=== PATIENT | female | born 1985 | race Hispanic/Latino ===

== ENCOUNTER 2017-04-30 14:39 | Inpatient (IN) | payer OTHER ==
[~2017-04-30] VITALS: Ht 165.1 cm; Wt 50.3 kg
[2017-04-30] MEDS: CLINDAMYCIN 600 MG/D5% WATER 50 ML IV SCH ×2 (04:45→20:49)
[2017-04-30 15:19] LABS: BASOPHILS % (AUTO) 0.2 % (0.0-5.0); EOSINOPHILS % (AUTO) 0.6 % (0.0-8.0); HEMATOCRIT 34.8 % (36-48); LYMPHOCYTES % (AUTO) 18.5 % (21.0-51.0); MEAN CORPUSCULAR HEMOGLOBIN 31.5 pg (27.0-33.0); MEAN CORPUSCULAR HGB CONC 35.3 g/dL (32.0-36.0); MEAN CORPUSCULAR VOLUME 89.2 fL (79-99); MONOCYTES % (AUTO) 6.7 % (3.0-13.0); PLATELET COUNT (AUTO) 186 K/uL (130-400); RED CELL DISTRIBUTION WIDTH 13.3 % (11.0-15.5); WHITE BLOOD COUNT (AUTO) 5.9 K/uL (4.8-10.8)
[2017-04-30 15:29] LABS: CREATININE 0.5 mg/dL (0.5-1.5); POTASSIUM 3.9 mmol/L (3.5-5.1)
[2017-04-30] MEDS ORDERED: OXYTOCIN-LR 20 UNITS/1000 ML 1,000 ML IV SCH (19:00)
[2017-04-30] MEDS: LACTATED RINGERS 1000ML 1,000 ML IV PRN (20:26)
[2017-04-30] MEDS ORDERED: CLINDAMYCIN 600 MG/D5% WATER 50 ML IV SCH (22:00)
[2017-05-01] MEDS: CLINDAMYCIN 600 MG/D5% WATER 50 ML IV SCH ×3 (04:47→20:43)
[2017-05-01 13:35] VITALS: BP 91/50
[2017-05-01] MEDS: LACTATED RINGERS 1000ML 1,000 ML IV PRN ×2 (15:46→22:55)
[2017-05-01 16:09] VITALS: BP 91/54
[2017-05-01] MEDS ORDERED: FLU VACC QS2017-18 36MOS UP/PF 60 MCG/0.5 ML ML IM SCH (16:15)
[2017-05-01 20:10] VITALS: BP 94/56
[2017-05-01 23:20] VITALS: BP 89/58
[2017-05-02 03:20] VITALS: BP 84/48
[2017-05-02] MEDS: LACTATED RINGERS 1000ML 1,000 ML IV PRN ×3 (05:03→19:31)
[2017-05-02] MEDS: CLINDAMYCIN 600 MG/D5% WATER 50 ML IV SCH ×3 (05:03→21:28)
[2017-05-02 07:26] VITALS: BP 86/46
[2017-05-02 11:56] VITALS: BP 96/58
[2017-05-02 12:09] LABS: HEPATITIS Bs ANTIGEN SCREEN P Negative (Negative)
[2017-05-02] MEDS ORDERED: ACETAMINOPHEN 325 MG TAB PO PRN (13:30)
[2017-05-02 15:39] VITALS: BP 89/45
[2017-05-02 19:15] VITALS: BP 97/50
[2017-05-02 23:54] VITALS: BP 88/50
[2017-05-03 04:33] VITALS: BP 89/47
[2017-05-03] MEDS: CLINDAMYCIN 600 MG/D5% WATER 50 ML IV SCH ×3 (06:06→21:32)
[2017-05-03] MEDS: LACTATED RINGERS 1000ML 1,000 ML IV PRN ×3 (06:07→19:53)
[2017-05-03 07:45] VITALS: BP 90/47
[2017-05-03 08:06] LABS: BASOPHILS % (AUTO) 0.6 % (0.0-5.0); EOSINOPHILS % (AUTO) 2.1 % (0.0-8.0); HEMATOCRIT 29.9 % (36-48); LYMPHOCYTES % (AUTO) 20.3 % (21.0-51.0); MEAN CORPUSCULAR HEMOGLOBIN 32.3 pg (27.0-33.0); MEAN CORPUSCULAR VOLUME 89.7 fL (79-99); MONOCYTES % (AUTO) 8.9 % (3.0-13.0); NEUTROPHILS % (AUTO) 68.1 % (40.0-77.0); PLATELET COUNT (AUTO) 138 K/uL (130-400); RED BLOOD CELL COUNT(AUTO) 3.33 MIL/uL (4.00-5.50); RED CELL DISTRIBUTION WIDTH 13.3 % (11.0-15.5)
[2017-05-03 12:48] VITALS: BP 94/51
[2017-05-03 15:28] VITALS: BP 94/53
[2017-05-03 19:55] VITALS: BP 96/49
[2017-05-03 23:15] VITALS: BP 91/54
[2017-05-04] MEDS: LACTATED RINGERS 1000ML 1,000 ML IV PRN ×2 (02:56→10:49)
[2017-05-04 03:25] VITALS: BP 86/54
[2017-05-04] MEDS: CLINDAMYCIN 600 MG/D5% WATER 50 ML IV SCH (05:35)
[2017-05-04 05:39] LABS: MEAN CORPUSCULAR HEMOGLOBIN 31.8 pg (27.0-33.0); MEAN CORPUSCULAR HGB CONC 35.5 g/dL (32.0-36.0); MEAN CORPUSCULAR VOLUME 89.5 fL (79-99); PLATELET COUNT (AUTO) 161 K/uL (130-400); RED BLOOD CELL COUNT(AUTO) 3.46 MIL/uL (4.00-5.50); RED CELL DISTRIBUTION WIDTH 13.6 % (11.0-15.5); WHITE BLOOD COUNT (AUTO) 4.5 K/uL (4.8-10.8)
[2017-05-04 08:09] VITALS: BP 93/55
[2017-05-04 11:58] VITALS: BP 110/59
== END 2017-05-04 14:40 | disposition home or self-care (01) | DRG 781 ==
LOC: EDH 14:39 → LDH 14:40 → OBSVTOIN 14:40 → LDH 18:45 → WSH 05-01 10:51
PROVIDERS: ADMIT Obstetrics & Gynecology; ATTEND Obstetrics & Gynecology
PROC: 3E0234Z Introduction of Serum, Toxoid and Vaccine into Muscle, Percutaneous Approach (ICD-10-PCS; principal; 2017-04-30)
DX: O99.89 Other specified diseases and conditions complicating pregnancy, childbirth and the puerperium (principal); N89.8 Other specified noninflammatory disorders of vagina; O42.90 Premature rupture of membranes, unspecified as to length of time between rupture and onset of labor, unspecified weeks of gestation; Z23 Encounter for immunization; Z3A.18 18 weeks gestation of pregnancy; Z88.8 Allergy status to other drugs, medicaments and biological substances
CPT/HCPCS: 36415; 76805; 76815; 80048; 85025; 85027; 86592; 86850; 86900; 86901; 87340; J3490; J7120; Q2038

== ENCOUNTER 2017-05-21 13:03 | Observation (INO) | payer OTHER ==
[~2017-05-21] VITALS: Ht 162.6 cm; Wt 50.8 kg
[2017-05-21 13:36] LABS: BASOPHILS % (AUTO) 0.3 % (0.0-5.0); EOSINOPHILS % (AUTO) 0.7 % (0.0-8.0); HEMATOCRIT 35.2 % (36-48); LYMPHOCYTES % (AUTO) 21.2 % (21.0-51.0); MEAN CORPUSCULAR HEMOGLOBIN 33.1 pg (27.0-33.0); MEAN CORPUSCULAR HGB CONC 36.4 g/dL (32.0-36.0); MEAN CORPUSCULAR VOLUME 91.1 fL (79-99); MONOCYTES % (AUTO) 6.1 % (3.0-13.0); NEUTROPHILS % (AUTO) 71.7 % (40.0-77.0); PLATELET COUNT (AUTO) 216 K/uL (130-400); RED BLOOD CELL COUNT(AUTO) 3.86 MIL/uL (4.00-5.50); RED CELL DISTRIBUTION WIDTH 13.9 % (11.0-15.5); WHITE BLOOD COUNT (AUTO) 7.2 K/uL (4.8-10.8)
[2017-05-21 14:30] VITALS: BP 112/66
== END 2017-05-21 14:42 | disposition home or self-care (01) ==
LOC: LDH 13:03
PROVIDERS: ADMIT Obstetrics & Gynecology; ATTEND Obstetrics & Gynecology
DX: O26.852 Spotting complicating pregnancy, second trimester (principal); Z3A.19 19 weeks gestation of pregnancy
CPT/HCPCS: 36415; 76805; 85025; G0378 ×2

== ENCOUNTER 2017-07-11 08:27 | Inpatient (IN) | payer OTHER ==
[2017-07-10] MEDS: IBUPROFEN 800 MG TAB PO SCH (19:45)
[~2017-07-11] VITALS: Ht 165.1 cm; Wt 54.4 kg
[2017-07-11] MEDS ORDERED: LACTATED RINGERS 1000ML 1,000 ML IV PRN (09:10)
[2017-07-11] MEDS ORDERED: OXYTOCIN-LR 20 UNITS/1000 ML 1,000 ML IV SCH (09:15)
[2017-07-11] MEDS ORDERED: MEPERIDINE-PF 50 MG/ML SYG IVP ONE (09:15)
[2017-07-11] MEDS ORDERED: DEXAMETHASONE SOD PHOSPHATE 4 MG/ML 1ML VIAL ONE (09:18)
[2017-07-11 09:19] LABS: HEMATOCRIT 36.8 % (36-48); MEAN CORPUSCULAR HEMOGLOBIN 32.1 pg (27.0-33.0); MEAN CORPUSCULAR HGB CONC 34.8 g/dL (32.0-36.0); MEAN CORPUSCULAR VOLUME 92.2 fL (79-99); PLATELET COUNT (AUTO) 192 K/uL (130-400); RED BLOOD CELL COUNT(AUTO) 3.99 MIL/uL (4.00-5.50); RED CELL DISTRIBUTION WIDTH 13.5 % (11.0-15.5); WHITE BLOOD COUNT (AUTO) 9.5 K/uL (4.8-10.8)
[2017-07-11] MEDS: DEXAMETHASONE SOD PHOSPHATE 4 MG/ML 1ML VIAL IM SCH (09:21)
[2017-07-11] MEDS: PROMETHAZINE HCL 25 MG/ML 1ML AMPULE IM SCH (09:44)
[2017-07-11] MEDS ORDERED: BERACTANT 200MG/8ML IH ONE (10:27)
[2017-07-11] MEDS ORDERED: PHENYLEPHRINE HCL 10 MG/ML 1ML VIAL IV ONE (10:50)
[2017-07-11] MEDS ORDERED: FENTANYL CITRATE PF 50 MCG/1 ML 2ML VIAL ONE (10:54)
[2017-07-11] MEDS ORDERED: CLINDAMYCIN 900 MG/D5% WATER 50 ML IV ONE (11:00)
[2017-07-11] MEDS ORDERED: SUCCINYLCHOLINE 200MG/10ML SYR ONE (11:08)
[2017-07-11] MEDS ORDERED: OXYTOCIN 10 USP UNITS/ML ONE ×2 (11:25→13:34)
[2017-07-11] MEDS ORDERED: DEXAMETHASONE SOD PHOSPHATE 10MG/ML 1ML VIAL ONE (11:26)
[2017-07-11] MEDS ORDERED: METOCLOPRAMIDE 10 MG/2 ML VIAL ONE (11:27)
[2017-07-11] MEDS ORDERED: MIDAZOLAM HCL 1 MG/ML 2ML VIAL ONE (11:33)
[2017-07-11] MEDS ORDERED: OXYTOCIN-LR 20 UNITS/1000 ML 1,000 ML IV PRN (11:42)
[2017-07-11] MEDS: IBUPROFEN 800 MG TAB PO SCH (11:45)
[2017-07-11] MEDS ORDERED: LANOLIN 30GM OINTMENT TP PRN (11:45)
[2017-07-11] MEDS ORDERED: BISACODYL 10 MG SUPP.RECT RC PRN (11:45)
[2017-07-11] MEDS ORDERED: SODIUM CHLORIDE 0.9% 10 ML VIAL IVP PRN ×2 (11:45)
[2017-07-11] MEDS ORDERED: HYDROCODONE/ACETAMINOPHEN 5/325 MG TAB PO PRN ×2 (11:45)
[2017-07-11] MEDS ORDERED: IBUPROFEN 600 MG TABLET PO PRN (11:45)
[2017-07-11] MEDS ORDERED: CALDOLOR 800MG+NS 250ML 250 ML IV ONE (13:35)
[2017-07-11] MEDS: MEPERIDINE-PF 75 MG/ML SYG IM PRN ×2 (15:30→23:09)
[2017-07-11] MEDS: PROMETHAZINE HCL 25 MG/ML 1ML AMPULE IM PRN ×2 (15:30→23:08)
[2017-07-11 16:29] VITALS: BP 114/70
[2017-07-11] MEDS ORDERED: CEFAZOLIN 2GM / 50 ML 50 ML IV SCH (18:45)
[2017-07-11 19:23] VITALS: BP 116/73
[2017-07-11] MEDS: CALDOLOR 800MG+NS 250ML 250 ML IV SCH (20:30)
[2017-07-11] MEDS: DOCUSATE SODIUM 100 MG CAP PO SCH (20:30)
[2017-07-11] MEDS: DEXTROSE 5 %-0.45 % NACL 1,000 ML IV PRN (22:30)
[2017-07-11 23:30] VITALS: BP 93/65
[2017-07-12 03:40] VITALS: BP 94/56
[2017-07-12] MEDS: IBUPROFEN 800 MG TAB PO SCH ×5 (03:45→19:09)
[2017-07-12] MEDS: CALDOLOR 800MG+NS 250ML 250 ML IV SCH (03:49)
[2017-07-12 06:54] LABS: HEMATOCRIT 25.5 % (36-48); MEAN CORPUSCULAR HEMOGLOBIN 33.2 pg (27.0-33.0); MEAN CORPUSCULAR HGB CONC 36.6 g/dL (32.0-36.0); MEAN CORPUSCULAR VOLUME 90.7 fL (79-99); PLATELET COUNT (AUTO) 162 K/uL (130-400); RED BLOOD CELL COUNT(AUTO) 2.82 MIL/uL (4.00-5.50); RED CELL DISTRIBUTION WIDTH 13.3 % (11.0-15.5); WHITE BLOOD COUNT (AUTO) 16.4 K/uL (4.8-10.8)
[2017-07-12 07:34] VITALS: BP 91/59
[2017-07-12] MEDS: DEXTROSE 5 %-0.45 % NACL 1,000 ML IV PRN (08:37)
[2017-07-12] MEDS: DOCUSATE SODIUM 100 MG CAP PO SCH ×2 (08:39→20:54)
[2017-07-12] MEDS: SIMETHICONE 80 MG TAB.CHEW PO PRN ×4 (08:39→20:54)
[2017-07-12] MEDS: ACETAMINOPHEN-CODEINE 300/30MG TAB PO PRN ×3 (08:40→20:54)
[2017-07-12] MEDS: DEXAMETHASONE SOD PHOSPHATE 4 MG/ML 1ML VIAL IM SCH (09:15)
[2017-07-12] MEDS: PROMETHAZINE HCL 25 MG/ML 1ML AMPULE IM SCH (09:15)
[2017-07-12 11:39] VITALS: BP 103/60
[2017-07-12 15:33] VITALS: BP 98/65
[2017-07-12 19:26] VITALS: BP 108/79
[2017-07-12 23:26] VITALS: BP 95/52
[2017-07-13] MEDS: IBUPROFEN 800 MG TAB PO SCH ×4 (03:45→12:54)
[2017-07-13 04:14] VITALS: BP 95/57
[2017-07-13 04:14] LABS: HEPATITIS Bs ANTIGEN SCREEN P Negative (Negative)
[2017-07-13 08:05] VITALS: BP 102/51
[2017-07-13] MEDS: DOCUSATE SODIUM 100 MG CAP PO SCH (08:52)
[2017-07-13] MEDS: SIMETHICONE 80 MG TAB.CHEW PO PRN ×2 (08:52→14:43)
[2017-07-13] MEDS: ACETAMINOPHEN EXTRA STRENGTH 500 MG TABLET PO PRN ×2 (08:53→14:43)
[2017-07-13] MEDS: DEXAMETHASONE SOD PHOSPHATE 4 MG/ML 1ML VIAL IM SCH (09:15)
[2017-07-13 11:29] VITALS: BP 93/52
== END 2017-07-13 15:40 | disposition home or self-care (01) | DRG 765 ==
LOC: EDH 08:27 → OBSVTOIN 08:41 → LDH 08:41 → WSH 14:14
PROVIDERS: ADMIT Obstetrics & Gynecology; ATTEND Obstetrics & Gynecology
PROC: 0UL70ZZ Occlusion of Bilateral Fallopian Tubes, Open Approach (ICD-10-PCS; 2017-07-11)
PROC: 10D00Z0 Extraction of Products of Conception, High, Open Approach (ICD-10-PCS; principal; 2017-07-11 11:22)
DX: O42.912 Preterm premature rupture of membranes, unspecified as to length of time between rupture and onset of labor, second trimester (principal); O41.02X0 Oligohydramnios, second trimester, not applicable or unspecified; O32.8XX0 Maternal care for other malpresentation of fetus, not applicable or unspecified; Z30.2 Encounter for sterilization; Z3A.27 27 weeks gestation of pregnancy; Z37.0 Single live birth
CPT/HCPCS: 36415; 59510; 76805; 85027; 86592; 86850; 86900; 86901; 87340; 88302; A4344; A4450; A4606; J0330; J1100; J1741; J2175; J2250; J2370; J2550; J2590; J2765; J3010; J3490; J7120